=== PATIENT | male | born 1980 | race Caucasian/White ===

== ENCOUNTER 2016-12-09 06:12 | Emergency (ER) | payer MEDICAID ==
[~2016-12-09] VITALS: Ht 175.3 cm; Wt 93.0 kg
[2016-12-09] MEDS ORDERED: LIDOCAINE HCL/EPINEPHRINE 1%-EPI 1:100,000 30 ML VIAL INFIL ONE (06:45)
[2016-12-09] MEDS ORDERED: LIDOCAINE HCL 1%/EPI 1:200,000 30 ML VIAL MC ONE (07:30)
[2016-12-09 08:55] VITALS: BP 132/80
== END 2016-12-09 08:56 | disposition home or self-care (01) ==
LOC: ER 06:12
DX: S91.311A Laceration without foreign body, right foot, initial encounter (principal); W25.XXXA Contact with sharp glass, initial encounter; Y93.89 Activity, other specified; Y92.89 Other specified places as the place of occurrence of the external cause
CPT/HCPCS: 12001; 73630; 99284; Z7610

== ENCOUNTER 2016-12-15 10:15 | Emergency (ER) | payer MEDICAID ==
[~2016-12-15] VITALS: Ht 175.3 cm; Wt 93.0 kg
[2016-12-15] MEDS ORDERED: IBUPROFEN 600MG TABLET PO ONE (10:45)
[2016-12-15] MEDS ORDERED: BACITRACIN ZINC OINT UDPKT TOP ONE (10:45)
[2016-12-15 10:55] VITALS: BP 140/83
== END 2016-12-15 10:56 | disposition home or self-care (01) ==
LOC: ER 10:32
DX: Z48.00 Encounter for change or removal of nonsurgical wound dressing (principal); M79.671 Pain in right foot; R03.0 Elevated blood-pressure reading, without diagnosis of hypertension
CPT/HCPCS: 99283

== ENCOUNTER 2016-12-24 16:47 | Emergency (ER) | payer MEDICAID ==
[~2016-12-24] VITALS: Ht 175.3 cm; Wt 93.0 kg
[2016-12-24 21:15] VITALS: BP 136/71
== END 2016-12-24 21:15 | disposition home or self-care (01) ==
LOC: ER 16:47
DX: Z48.02 Encounter for removal of sutures (principal); R03.0 Elevated blood-pressure reading, without diagnosis of hypertension
CPT/HCPCS: 99281

== ENCOUNTER 2017-04-15 00:41 | Emergency (ER) | payer MEDICAID ==
[~2017-04-15] VITALS: Ht 175.3 cm; Wt 100.0 kg
[2017-04-15] MEDS ORDERED: TETANUS, DIPHTHERIA, PERTUSSIS VAC/PF 0.5ML (>7YR OLD) IM ONE (07:15)
[2017-04-15] MEDS ORDERED: ACETAMINOPHEN 325MG TABLET PO ONE (07:15)
[2017-04-15] MEDS ORDERED: AMOXICILLIN/POTASSIUM CLAVULANATE 875/125MG TAB PO ONE (07:15)
[2017-04-15 07:23] VITALS: BP 131/81
== END 2017-04-15 08:25 | disposition home or self-care (01) ==
LOC: ER 08:21
DX: S91.051A Open bite, right ankle, initial encounter (principal); W54.0XXA Bitten by dog, initial encounter; Y93.89 Activity, other specified; R03.0 Elevated blood-pressure reading, without diagnosis of hypertension; Y92.89 Other specified places as the place of occurrence of the external cause; Z23 Encounter for immunization
CPT/HCPCS: 90471; 90715; 99283